=== PATIENT | female | born 1965 | race African-American/Black ===

== ENCOUNTER 2017-11-19 16:53 | Observation (INO) | payer MEDICARE, MEDICAID ==
[~2017-11-19] VITALS: Ht 175.3 cm; Wt 80.7 kg
[2017-11-19 18:49] LABS: Hematocrit 20.7 % (36.0-46.0); Mean Corpuscular Hemoglobin 16.8 pg (28.0-32.0); Mean Corpuscular Hgb Conc. 28.8 g/dL (32.0-36.0); Mean Corpuscular Volume 58.3 fL (80.0-100.0); Platelet Count (auto) 341 10^3/uL (140-450); Red Blood Cells 3.55 10^6/uL (4.0-5.20); White Blood Cell 5.3 10^3/uL (4.4-10.8)
[2017-11-19 18:52] LABS: Red Cell Distribution Width 20.7 % (11.8-14.3)
[2017-11-19 18:54] LABS: Band Neutrophils % (manual) 0; Basophils % (manual) 0 (0.0-2.0); Blast Cells 0; Eosinophils % (manual) 0 (0-7); Metamyelocytes % 0; Myelocytes % 0; Promyelocytes % 0; Reactive Lymphocytes 0
[2017-11-19 18:55] LABS: Albumin 3.5 g/dL (3.4-5.0); BUN/Creatinine Ratio 12.7; Bilirubin, Total 0.2 mg/dL (0.2-1.0); Calcium 9.2 mg/dL (8.5-10.1); Potassium 3.6 mmol/L (3.5-5.1); Total Protein 8.8 g/dL (6.4-8.2)
[2017-11-19 19:15] LABS: Lymphocytes % (manual) 28 (10.0-50.0); Monocytes % (manual) 9 (0-12)
[2017-11-19 21:13] LABS: INR 1.03 (0.9-1.15); Partial Thromboplastin Time 22.6 sec (23.78-33.04)
[2017-11-19 22:54] VITALS: BP 125/82
[2017-11-19 23:10] VITALS: BP 125/82
[2017-11-20 00:19] VITALS: BP 126/82
[2017-11-20 00:41] VITALS: BP 125/83
[2017-11-20 00:54] VITALS: BP 128/85
[2017-11-20 01:12] VITALS: BP 122/84
[2017-11-20 03:30] VITALS: BP 120/81
== END 2017-11-20 03:37 | disposition home or self-care (01) | DRG 812 ==
LOC: ER 16:57 → OVERFLOW 16:58 → ER 11-20 03:37
PROVIDERS: ADMIT Emergency Medicine; ATTEND Emergency Medicine
DX: D64.9 Anemia, unspecified (principal); D25.9 Leiomyoma of uterus, unspecified; N93.8 Other specified abnormal uterine and vaginal bleeding
CPT/HCPCS: 36415; 71045; 76856; 80053; 83880; 85007; 85027; 85045; 85610; 85730; 86850; 86900; 86901; 86920; 99291; G0378; P9016; 36430

== ENCOUNTER 2020-01-31 16:15 | Inpatient (IN) | payer MEDICARE, MEDICAID ==
[~2020-01-31] VITALS: Ht 175.3 cm; Wt 80.8 kg
[2020-01-31 18:54] LABS: Albumin 3.5 g/dL (3.4-5.0); BUN/Creatinine Ratio 17.6; Calcium 8.8 mg/dL (8.5-10.1); Potassium 3.8 mmol/L (3.5-5.1)
[2020-01-31 18:55] LABS: Mean Corpuscular Volume 58.5 fL (80.0-100.0); White Blood Cell 5.5 10^3/uL (4.4-10.8)
[2020-01-31 18:57] LABS: Basophils # (auto) 0.1 10 ^3/uL (0-0.2); Bilirubin, Total 0.2 mg/dL (0.2-1.0); Eosinophils # (auto) 0.1 10 ^3/uL (0-0.8); Eosinophils % (auto) 0.9 % (0.0-7.0); Lymphocytes # (auto) 1.6 10 ^3/uL (0.4-5.4); Lymphocytes % (auto) 28.2 % (10.0-50.0); Mean Corpuscular Hemoglobin 16.7 pg (28.0-32.0); Mean Corpuscular Hgb Conc. 28.6 g/dL (32.0-36.0); Monocytes # (auto) 0.4 10 ^3/uL (0-1.3); Monocytes % (auto) 6.8 % (0.0-12.0); Neutrophils # (auto) 3.5 10 ^3/uL (1.6-8.6); Neutrophils % (auto) 63.1 % (37.0-80.0); Nucleated Red Blood Cells % 0.1 %; Platelet Count (auto) 334 10^3/uL (140-450); Red Blood Cells 3.94 10^6/uL (4.0-5.20); Total Protein 8.2 g/dL (6.4-8.2)
[2020-01-31 19:29] LABS: Hemoglobin 6.6 g/dL (12.2-16.2); Red Cell Distribution Width 20.3 % (11.8-14.3)
[2020-01-31] MEDS ORDERED: PANTOPRAZOLE 40 MG TAB PO ONE (19:45)
[2020-01-31 21:10] LABS: INR 1.08 (0.9-1.15); Partial Thromboplastin Time 22.3 sec (23.0-31.2)
[2020-02-01] MEDS ORDERED: NITROGLYCERIN 0.4 MG SL TAB SL PRN (01:00)
[2020-02-01] MEDS ORDERED: DOCUSATE SOD 100 MG CAP PO PRN (01:00)
[2020-02-01] MEDS ORDERED: MORPHINE SULF INJ 2 MG/ML SYRINGE 1ML IV PRN (01:00)
[2020-02-01] MEDS ORDERED: HYDROcodone-ACET 5/325MG TAB PO PRN (01:00)
[2020-02-01] MEDS ORDERED: SODIUM CHLORIDE 0.9% 1,000 ML IV SCH (01:00)
[2020-02-01] MEDS ORDERED: ONDANSETRON HCL 4 MG/2 ML VIAL IV PRN (01:00)
[2020-02-01] MEDS ORDERED: ACETAMINOPHEN 325 MG TAB PO PRN (01:00)
--- NOTE | 2020-02-01 03:10 | NUR ---
Telemetry admit from ER MOLLY MEZA admitted to Telemetry unit after SBAR received. Patient oriented to Mari gomes RN, unit, room, bed, and unit policies regarding patient care and visiting hours. Patient now on continuous telemetry monitoring, tele box #[id number] and telemetry reading on arrival to unit is NSR. Patient weighed by bedscale and encouraged to call if they need something. All questions and concerns addressed, patient verbalized understanding.
[2020-02-01 03:26] LABS: Potassium 3.5 mmol/L (3.5-5.1)
[2020-02-01 03:33] LABS: Albumin 3.6 g/dL (3.4-5.0); BUN/Creatinine Ratio 17.4; Bilirubin, Total 0.2 mg/dL (0.2-1.0); Calcium 8.6 mg/dL (8.5-10.1); Total Protein 8.8 g/dL (6.4-8.2)
[2020-02-01 04:11] LABS: Basophils # (auto) 0.1 10 ^3/uL (0-0.2); Eosinophils # (auto) 0 10 ^3/uL (0-0.8); Eosinophils % (auto) 0.8 % (0.0-7.0); Folate (Folic Acid) 7.98 ng/mL (5.38-24); Hematocrit 22.5 % (36.0-46.0); Lymphocytes % (auto) 36.5 % (10.0-50.0); Mean Corpuscular Hemoglobin 16.3 pg (28.0-32.0); Mean Corpuscular Hgb Conc. 27.8 g/dL (32.0-36.0); Mean Corpuscular Volume 58.5 fL (80.0-100.0); Monocytes # (auto) 0.6 10 ^3/uL (0-1.3); Monocytes % (auto) 9.9 % (0.0-12.0); Neutrophils # (auto) 2.9 10 ^3/uL (1.6-8.6); Neutrophils % (auto) 51.8 % (37.0-80.0); Nucleated Red Blood Cells % 0.1 %; Platelet Count (auto) 346 10^3/uL (140-450); Red Blood Cells 3.84 10^6/uL (4.0-5.20); White Blood Cell 5.5 10^3/uL (4.4-10.8)
[2020-02-01 04:14] LABS: Red Cell Distribution Width 20.4 % (11.8-14.3)
[2020-02-01 04:15] LABS: Hemoglobin 6.2 g/dL (12.2-16.2)
--- NOTE | 2020-02-01 04:30 | NUR ---
CRITICAL RECEIVED CALL REGARDING CRITICAL HGB OF 6.2. ORDERS TO TRANSFUSE ALREADY IN PLACE AND BLOOD PRODUCT READY. WILL CARRY OUT AND CONTINUE CARE.
[2020-02-01 04:38] VITALS: BP 129/79
[2020-02-01 04:40] VITALS: BP 129/79
--- NOTE | 2020-02-01 04:49 | NUR ---
BLOOD TRANSFUSION TRANSFUSION OF 1 UNIT PRBCs INITIATED. PATIENT IS TOLERATING WELL AFTER 15 MINUTES OBSERVATION. VS REMAIN STABLE AND UNCHANGED. WILL CONTINUE TO MONITOR.
[2020-02-01 04:53] VITALS: BP 123/75
[2020-02-01 05:09] VITALS: BP 129/79
--- NOTE | 2020-02-01 07:10 | NUR ---
BLOOD TRANSFUSION TRANSFUSION OF 1U PRBC IS COMPLETE. PATIENT TOLERATED WELL. WILL CONTINUE CARE.
[2020-02-01 07:50] VITALS: BP 139/63
[2020-02-01 08:47] VITALS: BP 128/50
[2020-02-01] MEDS ORDERED: ASCORBIC ACID 500 MG TAB PO SCH (10:00)
[2020-02-01] MEDS ORDERED: MULTIPLE VITAMIN TAB PO SCH (10:00)
[2020-02-01] MEDS ORDERED: ZINC SULFATE 220mg CAP or TAB PO SCH (10:00)
[2020-02-01] MEDS ORDERED: PANTOPRAZOLE 40 MG/10 ML VIAL INJ IV SCH (10:00)
--- NOTE | 2020-02-01 13:23 | NUR ---
Discharge instructions given as ordered. Encourage to follow up with PMD as instructed. All questions and concerns addressed. Patient verbalized understanding. IV removed with catheter intact, pressure dressing applied. Telemetry unit returned to ICU. Patient taken to vehicle via wheelchair with all personal belongings, accompanied by staff. No distress noted at time of departure.
== END 2020-02-01 13:20 | disposition home or self-care (01) | DRG 812 ==
LOC: ER 16:15 → TELE 16:16 → TELE-WESTW 02-01 03:10
PROVIDERS: ADMIT Nurse Practitioner Family; ATTEND Internal Medicine
PROC: 30233N1 Transfusion of Nonautologous Red Blood Cells into Peripheral Vein, Percutaneous Approach (ICD-10-PCS; principal; 2020-02-01)
DX: D50.9 Iron deficiency anemia, unspecified (principal); N92.1 Excessive and frequent menstruation with irregular cycle; Z83.3 Family history of diabetes mellitus
CPT/HCPCS: 36415; 71045; 80053; 82607; 82746; 83540; 83550; 83880; 84443; 84484; 85025; 85610; 85730; 86850; 86900; 86901; 86920; C9113; G0378